=== PATIENT | female | born 1975 | race Hispanic/Latino ===

== ENCOUNTER 2021-05-11 17:58 | Emergency (ER) | payer MEDICARE, BC ==
[2021-05-11 18:42] VITALS: BP 153/93
[2021-05-11] MEDS ORDERED: SODIUM CHLORIDE 0.9% 1000 ML 1,000 ML IV ONE (21:51)
[2021-05-11] MEDS ORDERED: KETOROLAC 30 MG/1 ML INJ IV ONE (21:51)
[2021-05-11] MEDS ORDERED: ONDANSETRON 4 MG/2 ML INJ IV ONE (21:51)
[2021-05-11] MEDS ORDERED: FAMOTIDINE 20 MG/2 ML INJ IV ONE (21:51)
[2021-05-11] MEDS ORDERED: ACETAMINOPHEN 500 MG TAB PO ONE (23:10)
[2021-05-11 23:31] LABS: Bilirubin,Urine NEG (Negative); Blood,Urine NEG (Negative); Color,Urine Straw (Yellow); Protein,Urine <15 mg/dL mg/dL (Negative); RBC,Urine < 1.0 /HPF (0.0-6.0); Urobilinogen,Urine < 2.0 mg/dL (<2.0)
[2021-05-11] MEDS ORDERED: MORPHINE 4 MG/1 ML INJ IV ONE (23:47)
[2021-05-11] MEDS ORDERED: PROCHLORPERAZINE EDISYLATE 10 MG/2 ML VIAL IV ONE (23:47)
[2021-05-11 23:50] LABS: Basophils % (Auto) 1.1 % (0.0-1.8); Eosinophils % (Auto) 1.5 % (0.0-4.3); Lymphocytes % (Auto) 24.2 % (13.4-35.0); Monocytes % (Auto) 6.2 % (0.0-7.3)
[2021-05-12 00:06] LABS: Alanine Aminotransferase 16 units/L (7-56); BUN/Creatinine Ratio 16; Blood Urea Nitrogen 13 mg/dL (7-17); Hemolysis Index 7
[2021-05-12 00:21] LABS: Basophils # (Auto) 0.1 K/mm3 (0.0-0.1); Eosinophils # (Auto) 0.2 K/mm3 (0.0-0.4); Hematocrit 40.7 % (30.3-42.9); Hemoglobin 13.2 gm/dl (10.1-14.3); Lymphocytes # (Auto) 2.7 K/mm3 (1.2-5.4); Mean Corpuscular HGB Conc 33 % (30-34); Mean Corpuscular Volume 89 fl (79-97); Monocytes # (Auto) 0.6 K/mm3 (0.0-0.8); Platelet Count 295 K/mm3 (140-440); Red Blood Count 4.56 M/mm3 (3.65-5.03); Red Cell Distribution Width 15.3 % (13.2-15.2)
--- NOTE | 2021-05-12 00:53 | Emergency Department Report ---
ED N/V/D HPI - General Chief complaint: Nausea/Vomiting/Diarrhea Stated complaint: NAUSEA/AB PAIN/BLOOD IN STOOL Source: patient Mode of arrival: Ambulatory Limitations: No Limitations - History of Present Illness Initial comments: Patient is a 46-year-old female with a history of tachycardia, morbid obesity, chronic low back pain and cyclic vomiting syndrome presents to the ED with complaint of acute onset persistent diffuse abdominal pain and intractable nausea and vomiting for the last 12 hours. Patient states that she has not been able to keep anything down for the last 12 hours. Patient denies hematemesis, hematochezia, diarrhea, dysuria, urinary frequency and urgency, chest pain, shortness of breath, headache, dizziness, syncope, lightheadedness, fever and chills or vaginal bleeding. MD complaint: nausea, vomiting, abdominal pain (Diffuse) -: Sudden, hour(s) (12) Description of Vomiting: food contents Associated Abdominal Pain: Yes (Diffuse) Location: diffuse Radiation: none Severity: moderate Pain Scale: 6 Quality: cramping, aching Consistency: intermittent Improves with: none Worsens with: vomiting Context: other (Chronic cyclic vomiting syndrome) Associated Symptoms: denies other symptoms, loss of appetite, nausea/vomiting. denies: myalgias, chest pain, cough, diaphoresis, headaches, malaise, rash, dysuria, shortness of breath, syncope, weakness - Related Data Previous Rx's Medication Instructions Recorded Last Taken Type Dicyclomine [Bentyl] 20 mg PO Q6H PRN #30 tablet 05/12/21 Unknown Rx Famotidine [Pepcid] 20 mg PO BID #30 tablet 05/12/21 Unknown Rx Ondansetron [Zofran Odt] 4 mg PO Q6HR PRN #20 tab.rapdis 05/12/21 Unknown Rx Promethazine [Phenergan] 25 mg PO Q8HR PRN #24 tab 05/12/21 Unknown Rx Allergies Allergy/AdvReac Type Severity Reaction Status Date / Time codeine Allergy Anaphylaxis Verified 05/11/21 18:37 metoclopramide [From Reglan] Allergy Unknown Verified 05/11/21 18:37 tramadol Allergy Vomiting Verified 05/11/21 18:37 ED Review of Systems ROS: Stated complaint: NAUSEA/AB PAIN/BLOOD IN STOOL Other details as noted in HPI Constitutional: denies: chills, fever Eyes: denies: eye pain, eye discharge, vision change ENT: denies: ear pain, throat pain Respiratory: denies: cough, shortness of breath, wheezing Cardiovascular: denies: chest pain, palpitations Endocrine: no symptoms reported Gastrointestinal: abdominal pain, nausea, vomiting. denies: diarrhea Genitourinary: denies: urgency, dysuria, discharge Musculoskeletal: denies: back pain, joint swelling, arthralgia Skin: denies: rash, lesions Neurological: denies: headache, weakness, paresthesias Psychiatric: denies: anxiety, depression Hematological/Lymphatic: denies: easy bleeding, easy bruising ED Past Medical Hx - Past Medical History Additional medical history: TACHYCARDIA; cyclic vomiting syndrome - Surgical History Hx Cholecystectomy: Yes Hx Appendectomy: Yes Additional Surgical History: BACK/ HYSTO - Medications Home Medications: Home Medications Medication Instructions Recorded Confirmed Last Taken Type Dicyclomine [Bentyl] 20 mg PO Q6H PRN #30 tablet 05/12/21 Unknown Rx Famotidine [Pepcid] 20 mg PO BID #30 tablet 05/12/21 Unknown Rx Ondansetron [Zofran Odt] 4 mg PO Q6HR PRN #20 tab.rapdis 05/12/21 Unknown Rx Promethazine [Phenergan] 25 mg PO Q8HR PRN #24 tab 05/12/21 Unknown Rx ED Physical Exam - General Limitations: No Limitations General appearance: alert, in no apparent distress - Head Head exam: Present: atraumatic, normocephalic, normal inspection - Eye Eye exam: Present: normal appearance, PERRL, EOMI Pupils: Present: normal accommodation - ENT ENT exam: Present: normal exam, normal orophraynx, mucous membranes moist, TM's normal bilaterally, normal external ear exam - Neck Neck exam: Present: normal inspection, full ROM - Respiratory Respiratory exam: Present: normal lung sounds bilaterally. Absent: respiratory distress, wheezes, rales, rhonchi, stridor, chest wall tenderness, accessory muscle use, decreased breath sounds, prolonged expiratory - Cardiovascular Cardiovascular Exam: Present: regular rate, normal rhythm, normal heart sounds. Absent: systolic murmur, diastolic murmur, rubs, gallop - GI/Abdominal GI/Abdominal exam: Present: soft, tenderness (Palpable mild diffuse abdominal tenderness), normal bowel sounds. Absent: guarding, rebound, hyperactive bowel sounds, hypoactive bowel sounds, organomegaly - Extremities Exam Extremities exam: Present: normal inspection, full ROM, normal capillary refill - Back Exam Back exam: Present: normal inspection, full ROM. Absent: tenderness, CVA tend erness (R), CVA tenderness (L), muscle spasm, paraspinal tenderness, vertebral tenderness - Neurological Exam Neurological exam: Present: alert, oriented X3, CN II-XII intact, normal gait, reflexes normal - Psychiatric Psychiatric exam: Present: normal affect, normal mood - Skin Skin exam: Present: warm, dry, intact, normal color. Absent: rash ED Course Vital Signs 05/11/21 05/11/21 18:41 22:21 Temperature 98.6 F Pulse Rate 92 H Respiratory 20 16 Rate Blood Pressure 153/93 O2 Sat by Pulse 97 Oximetry ED Medical Decision Making - Lab Data Result diagrams: 05/11/21 22:01 05/11/21 22:01 - Medical Decision Making This is a 46-year-old female with a history of tachycardia, morbid obesity, chronic low back pain and cyclic vomiting syndrome presents to the ED with complaint of acute onset persistent diffuse abdominal pain and intractable nausea and vomiting for the last 12 hours. Patient states that she has not been able to keep anything down for the last 12 hours. In the ED, patient is alert and oriented x3 and is not in distress. Patient is hemodynamically stable. Patient was treated for pain in the ED and was retreated for nausea and vomiting, and also given antacids. On reevaluation, patient's pain is well controlled medication. Patient has not had any nausea or vomiting while in the ED. Lab test results were reviewed and are all nonactionable. Patient was discharged home on medications for nausea and vomiting, antacids and advised to follow-up with her primary care physician in 5 to 7 days for reevaluation. Patient was meanwhile advised to maintain a clear liquid diet for 12 to 24 hours. Patient was advised return to the ED immediately if symptoms get worse. - Differential Diagnosis Viral gastroenteritis; GERD; cyclic vomiting syndrome; dehydration; UTI Critical care attestation.: If time is entered above; I have spent that time in minutes in the direct care of this critically ill patient, excluding procedure time. ED Disposition Clinical Impression: Nausea and vomiting in adult patient, Cyclic vomiting syndrome Abdominal pain Qualifiers: Abdominal location: generalized Qualified Code(s): R10.84 - Generalized abdominal pain Disposition: 01 HOME / SELF CARE / HOMELESS Is pt being admited?: No Does the pt Need Aspirin: No Condition: Stable Instructions: Abdominal Pain, Adult, [id number], Nausea and Vomiting, Adult, [id number], Cyclic Vomiting Syndrome, Adult Additional Instructions: All lab test results were reviewed and are all nonactionable. Therefore maintain a clear liquid diet for 12 to 24 hours, drink plenty of fluids, take medication as needed for nausea and vomiting and pain, follow-up with your [facility] physician in 5 to 7 days for reevaluation. Return to the ED immediately if symptoms get worse. Prescriptions: Dicyclomine [Bentyl] 20 mg PO Q6H PRN #30 tablet PRN Reason: Abdominal pain Famotidine [Pepcid] 20 mg PO BID #30 tablet Promethazine [Phenergan] 25 mg PO Q8HR PRN #24 tab PRN Reason: Nausea Ondansetron [Zofran Odt] 4 mg PO Q6HR PRN #20 tab.rapdis PRN Reason: Nausea Referrals: [facility] [Provider Group] - 3-5 Days Time of Disposition: 00:54 Print Language: RWANDAN
== END 2021-05-12 01:15 | disposition home or self-care (01) ==
LOC: ED 17:58
DX: R10.84 Generalized abdominal pain (principal); R11.2 Nausea with vomiting, unspecified; R11.15 Cyclical vomiting syndrome unrelated to migraine; Z90.49 Acquired absence of other specified parts of digestive tract; Z98.890 Other specified postprocedural states; Z88.5 Allergy status to narcotic agent; Z88.8 Allergy status to other drugs, medicaments and biological substances
CPT/HCPCS: 36415; 80053; 81001; 83690; 84703; 85025; 96361; 96374; 96375; 99283; J0780; J1885; J2270; J2405; J3490; J7030; Q0162